=== PATIENT | female | born 1995 | race Caucasian/White ===

== ENCOUNTER → 2017-01-25 | Outpatient (CLI) | payer OTHER | LOC: HPND 13:36 | PROVIDERS: ATTEND Obstetrics & Gynecology | DX: O48.0 Post-term pregnancy (principal); Z3A.40 40 weeks gestation of pregnancy | CPT/HCPCS: 76816; 76818 ==

== ENCOUNTER 2017-04-28 01:54 | Emergency (ER) | payer OTHER ==
[~2017-04-28] VITALS: Ht 162.6 cm; Wt 115.0 kg
[2017-04-28 01:56] VITALS: BP 130/79; PULSE 103; RESP 16; TEMP 98.8; O2SAT 100
[2017-04-28] MEDS ORDERED: CEFU1TAB20 PO (02:24)
[2017-04-28] MEDS ORDERED: LIDOCAINE HCL 1% 50 ML VIAL XX ONE (03:15)
[2017-04-28] MEDS ORDERED: KETOROLAC TROMETHAMINE 60 MG/2 ML (IM) VIAL IM ONE (03:15)
[2017-04-28] MEDS ORDERED: cefTRIAXone 250 MG VIAL IM ONE (03:15)
[2017-04-28] MEDS ORDERED: DOXY100C PO (03:18)
[2017-04-28] MEDS ORDERED: TRAM50 PO (03:18)
[2017-04-28] MEDS ORDERED: IBUP1TAB7 PO (03:18)
[2017-04-28] MEDS ORDERED: METR-1 PO (03:18)
--- NOTE | 2017-04-28 03:18 | PD ---
HPI . Pelvic pain Chief Complaint: Chest Pain Time Seen by Provider: 02:08 Travel History International Travel<30 days: No Contact w/Intl Traveler<30days: No Traveled to known affect area: No History of Present Illness HPI This patient presents with suprapubic pain that started about a week ago. She describes it as cramping. It is getting progressively worse. Was seen at an urgent care facility earlier in the week and diagnosed with urinary tract infection. She was placed on cefuroxime. She states that the cefuroxime has caused her to have heartburn. She denies any vaginal discharge or dyspareunia. PFS Past Medical History Immunizations Current: Yes Tetanus Vaccination: Unknown Influenza Vaccination: No ?: Unknown Social History Alcohol Use: No Tobacco Use: No Substance Use: No Allergies-Medications (Allergen,Severity, Reaction): Coded Allergies: No Known Allergies (Unverified , 04/28/17) Reported Meds & Prescriptions Reported Meds & Active Scripts Active Reported Cefuroxime (Cefuroxime Axetil) 500 Mg Tab 500 Mg PO BID Review of Systems Except as stated in HPI: all other systems reviewed are Neg General / Constitutional: No: Fever, Chills Gastrointestinal: Positive: Other (reflux), No: Nausea, Vomiting Genitourinary: Positive: Pelvic Pain, No: Urgency, Frequency, Dysuria, Discharge, Dysmenorrhea, Vaginal Bleeding Physical Exam Narrative GENERAL: Awake and alert and in no acute distress. SKIN: Warm and dry. HEAD: Normocephalic/atraumatic. EYES: Pupils are equal. Extraocular movements are intact. NECK: Normal range of motion. CARDIOVASCULAR: Regular rate and rhythm. RESPIRATORY: Nonlabored respirations. ABDOMEN: Soft and nontender. : There is a white discharge in the vaginal vault. Her cervix is friable. The os is closed. There is no cervical motion tenderness but she does have bilateral adnexal tenderness. MUSCULOSKELETAL: Atraumatic. NEUROLOGICAL: Nonfocal. PSYCHIATRIC: Appropriate mood and affect. Data Data Last Documented VS Vital Signs Date Time Temp Pulse Resp B/P (MAP) Pulse Ox O2 Delivery O2 Flow Rate FiO2 04/28/17 01:56 98.8 103 16 130/79 (96) 100 Room Air Orders Orders Gc And Chlamydia Pcr (04/28/17 02:08) Wet Prep Profile (04/28/17 02:08) Urinalysis - C+S If Indicated (04/28/17 02:08) Ed Urine Pregnancytest Poc (04/28/17 02:08) Ceftriaxone Inj (Rocephin Inj) (04/28/17 03:15) Lidocaine 1% Inj (50 Ml) (Xylocaine 1% I (04/28/17 03:15) Ketorolac Inj (Toradol Inj) (04/28/17 03:15) MDM Medical Decision Making Medical Screen Exam Complete: Yes Emergency Medical Condition: Yes Differential Diagnosis Differential diagnosis of pelvic pain includes but is not limited to UTI, PID, ectopic , spontaneous AB, constipation, viral illness Narrative Course This patient presents with a one-week history of pelvic pain. She has PID on physical exam. test is negative. She will be treated here with Rocephin and then will be discharged on doxycycline, Flagyl, ibuprofen and Ultram. Diagnosis Primary Impression: Pelvic inflammatory disease Patient Instructions: General Instructions, Pelvic Inflammatory Disease (DC) Med/Other Pt SpecificInfo: Prescription(s) given Scripts Tramadol (Ultram) 50 Mg Tab 50 MG PO Q4H Y for PAIN, #12 TAB 0 Refills Prov: Ava Peters MD 04/28/17 Ibuprofen (Ibuprofen) 800 Mg Tab 800 MG PO Q8H Y for Pain/Inflammation, #60 TAB 0 Refills Prov: Ava Peters MD 04/28/17 Metronidazole (Flagyl) 500 Mg Tab 500 MG PO BID for Infection for 7 Days, #14 TAB 0 Refills Prov: Ava Peters MD 04/28/17 Doxycycline Hyclate (Doxycycline Hyclate) 100 Mg Cap 100 MG PO BID for Infection, #20 CAP 0 Refills Prov: Ava Peters MD 04/28/17 Disposition: 01 DISCHARGE HOME Condition: Stable Ava Peters MD Apr 28, 2017 03:18
[2017-04-28 04:06] LABS: BACTERIA, URINE RARE /hpf; BLOOD, URINE NEG (NEG); COMMENT (UR) CULT NOT INDICATED; CULTURE IF INDICATED CULT NOT INDICATED; GLUCOSE,URINE NEG (NEG); KETONE, URINE NEG (NEG); MUCUS URINE FEW /lpf (OCC); NITRITE,URINE NEG (NEG); PH, URINE 5.5 (5.0-8.5); SQUAMOUS EPITHELIAL CELL URINE 6 /hpf (0-5); URINE COLOR YELLOW (YELLW/STRAW)
[2017-04-28 06:07] LABS: CHLAMYDIA PCR NOT DETECTED (NOT DETECT); NEISSERIA PCR NOT DETECTED (NOT DETECT)
== END 2017-04-28 03:42 | disposition home or self-care (01) ==
LOC: NEPC 01:54
DX: N73.9 Female pelvic inflammatory disease, unspecified (principal)
CPT/HCPCS: 81001; 84703; 87210; 87491; 87591; 96372; 99284; J0696; J1885

== ENCOUNTER 2017-06-27 11:32 | Emergency (ER) | payer OTHER ==
[~2017-06-27] VITALS: Ht 162.6 cm; Wt 109.0 kg
[~2017-06-27 11:32] MED LIST: LACTCAP8 PO; OMEP20TA93 PO
[2017-06-27 11:33] VITALS: BP 122/75; PULSE 86; RESP 16; TEMP 99.3; O2SAT 100
[2017-06-27] MEDS ORDERED: IOHEXOL 350 MG/ML 10 ML VIAL (for RAD DIAG) IVCONTRAST ONE (11:33)
[2017-06-27 12:49] LABS: BACTERIA, URINE RARE /hpf; BILIRUBIN, URINE NEG (NEG); BLOOD, URINE NEG (NEG); GLUCOSE,URINE NEG (NEG); KETONE, URINE NEG (NEG); NITRITE,URINE NEG (NEG); PH, URINE 5.5 (5.0-8.5); SQUAMOUS EPITHELIAL CELL URINE 1 /hpf (0-5); URINE COLOR LIGHT-YELLOW (YELLW/STRAW); URINE LEUKOCYTE ESTERASE MOD (NEG)
[2017-06-27 12:49] LABS: AUTOMATED NEUTROPHIL # 4.7 TH/MM3 (1.8-7.7); BASOPHIL # 0.1 TH/MM3 (0-0.2); BASOPHIL % 1.1 % (0.0-2.0); EOSINOPHIL # 0.1 TH/MM3 (0-0.4); EOSINOPHIL % 1.4 % (0.0-4.0); HEMATOCRIT 37.4 % (35.0-46.0); HEMOGLOBIN 12.5 GM/DL (11.6-15.3); LYMPH % 20.3 % (9.0-44.0); LYMPHOCYTE # 1.3 TH/MM3 (1.0-4.8); MEAN CELL VOLUME 79.1 FL (80.0-100.0); MEAN CORPUSCULAR HEMOGLOBIN 26.5 PG (27.0-34.0); MEAN CORPUSCULAR HGB CONC 33.5 % (32.0-36.0); MEAN PLATELET VOLUME 7.4 FL (7.0-11.0); MONO % 7.1 % (0.0-8.0); MONOCYTE # 0.5 TH/MM3 (0-0.9); NEUT % 70.1 % (16.0-70.0); PLATELET COUNT 400 TH/MM3 (150-450); RED BLOOD COUNT 4.72 MIL/MM3 (4.00-5.30); RED CELL DISTRIBUTION WIDTH 15.9 % (11.6-17.2); WHITE BLOOD COUNT 6.6 TH/MM3 (4.0-11.0)
[2017-06-27 13:00] VITALS: BP 123/72; PULSE 81; RESP 17; TEMP 98.2; O2SAT 99
[2017-06-27 13:06] LABS: ALBUMIN 4.1 GM/DL (3.4-5.0); AST (GOT) 13 U/L (15-37); BICARBONATE 26.8 MEQ/L (21.0-32.0); BLOOD UREA NITROGEN 8 MG/DL (7-18); CALCIUM 9.1 MG/DL (8.5-10.1); CHLORIDE 106 MEQ/L (98-107); GLOMERULAR FILTRATION RATE 69 ML/MIN (>89); GLUCOSE,RANDOM 88 MG/DL (74-106); SODIUM (NA) 138 MEQ/L (136-145)
[2017-06-27 13:08] LABS: ALT (GPT) 11 U/L (10-53)
[2017-06-27 13:17] LABS: ALKALINE PHOSPHATASE 63 U/L (45-117); TOTAL BILIRUBIN ADULT 1.2 MG/DL (0.2-1.0); TOTAL PROTEIN 7.6 GM/DL (6.4-8.2)
[2017-06-27] MEDS ORDERED: SODIUM CHLOR 0.9% 1000 ML INJ 1,000 ML IV SCH (13:22)
--- NOTE | 2017-06-27 13:22 | PD ---
HPI Chief Complaint: Abdominal Pain Time Seen by Provider: 13:01 Travel History International Travel<30 days: No Contact w/Intl Traveler<30days: No Traveled to known affect area: No History of Present Illness HPI 21-year-old female presents to the emergency department with concern of breaking out in hives after drinking oral contrast for CT scan that she was supposed to have this morning. She does not have hives at this time. She said they broke out on her face, chest, and upper extremities and have subsided spontaneously. She is complaining of abdominal pain 2 months. She has seen her regular doctor, Dr. Morgan, and GI last month and had endoscopy done and was told there was some inflammation, but nothing significant. She was told to come to the ER for evaluation of the hives. She also is concerned that she has something wrong with her thyroid. Her primary care provider told her she could possibly have an autoimmune disorder and her TSH was anuzvow0s, but she was not started on any medications. She reports feeling tired and lethargic. Says she' s been having low-grade fevers on and off and last had one 4 nights ago 99.0- 100.0. PFSH Past Medical History Medical History: Denies Significant Hx Immunizations Current: Yes Tetanus Vaccination: Unknown ?: Not LMP: 06/25/16 Past Surgical History Oral Surgery: Yes (WISDOM TEETH) Tonsillectomy: Yes Other Surgery: Yes (ENDOSCOPY) Social History Alcohol Use: No Tobacco Use: No Substance Use: No Allergies-Medications (Allergen,Severity, Reaction): Coded Allergies: doxycycline (Verified Allergy, Severe, SOB Dizzy, 05/18/17) barium sulfate (Verified Allergy, Unknown, 06/27/17) Reported Meds & Prescriptions Reported Meds & Active Scripts Active Synthroid (Levothyroxine Sodium) 175 Mcg Tab 175 Mcg PO DAILY Reported Omeprazole 20 Mg Tab 20 Mg PO DAILY Probiotic (Lactobacillus Acidophilus) 10 Billion Cell Cap 1 Cap PO DAILY Review of Systems Except as stated in HPI: all other systems reviewed are Neg Physical Exam Narrative GENERAL: Well-nourished, well-developed female patient, in no acute distress; afebrile; nontoxic appearing SKIN: Warm and dry. No rash noted. HEAD: Atraumatic. Normocephalic. EYES: Pupils equal and round. No scleral icterus. No injection or drainage. ENT: Mucosa pink and moist. Airway patent. NECK: Trachea midline. CARDIOVASCULAR: Regular rate and rhythm. No murmur appreciated. RESPIRATORY: No accessory muscle use. Clear to auscultation. Breath sounds equal bilaterally. GASTROINTESTINAL: Abdomen soft, tenderness on palpation to epigastric region, nondistended. Hepatic and splenic margins not palpable. Negative Santa's. Bowel sounds are active 4 quadrants. Nonrigid. No rebound tenderness. No guarding. BACK: No CVA tenderness. MUSCULOSKELETAL: No obvious deformities. No clubbing. No cyanosis. No edema. NEUROLOGICAL: Awake and alert. Oriented 3. No obvious cranial nerve deficits. Motor grossly within normal limits. Normal speech. PSYCHIATRIC: Appropriate mood and affect; insight and judgment normal. Data Data Last Documented VS Vital Signs Date Time Temp Pulse Resp B/P (MAP) Pulse Ox O2 Delivery O2 Flow Rate FiO2 06/27/17 16:58 66 18 130/86 (101) 99 06/27/17 13:00 98.2 Room Air Orders Orders Complete Blood Count With Diff (06/27/17 11:43) Comprehensive Metabolic Panel (06/27/17 11:43) Lipase (06/27/17 11:43) Urinalysis - C+S If Indicated (06/27/17 11:43) Ed Urine Pregnancytest Poc (06/27/17 11:43) Thyroid Stimulating Hormone (06/27/17 11:43) Ct Abd/Pel W Iv Contrast(Rout) (06/27/17 13:22) Diphenhydramine Inj (Benadryl Inj) (06/27/17 13:30) Ondansetron Inj (Zofran Inj) (06/27/17 13:30) Sodium Chlor 0.9% 1000 Ml Inj (Ns 1000 M (06/27/17 13:22) Sodium Chloride 0.9% Flush (Ns Flush) (06/27/17 13:30) Ketorolac Inj (Toradol Inj) (06/27/17 13:30) Free T3 (06/27/17 13:22) Free Thyroxine (T4) (06/27/17 13:22) Iohexol 350 Inj (Omnipaque 350 Inj) (06/27/17 11:33) Levothyroxine (Synthroid) (06/27/17 15:30) Levothyroxine (Synthroid) (06/27/17 16:00) Levothyroxine (Synthroid) (06/27/17 16:00) Ed Discharge Order (06/27/17 16:42) Labs Laboratory Tests Test 06/27/17 12:28 06/27/17 12:37 White Blood Count 6.6 TH/MM3 Red Blood Count 4.72 MIL/MM3 Hemoglobin 12.5 GM/DL Hematocrit 37.4 % Mean Corpuscular Volume 79.1 FL Mean Corpuscular Hemoglobin 26.5 PG Mean Corpuscular Hemoglobin Concent 33.5 % Red Cell Distribution Width 15.9 % Platelet Count 400 TH/MM3 Mean Platelet Volume 7.4 FL Neutrophils (%) (Auto) 70.1 % Lymphocytes (%) (Auto) 20.3 % Monocytes (%) (Auto) 7.1 % Eosinophils (%) (Auto) 1.4 % Basophils (%) (Auto) 1.1 % Neutrophils # (Auto) 4.7 TH/MM3 Lymphocytes # (Auto) 1.3 TH/MM3 Monocytes # (Auto) 0.5 TH/MM3 Eosinophils # (Auto) 0.1 TH/MM3 Basophils # (Auto) 0.1 TH/MM3 CBC Comment DIFF FINAL Differential Comment Blood Urea Nitrogen 8 MG/DL Creatinine 1.00 MG/DL Random Glucose 88 MG/DL Total Protein 7.6 GM/DL Albumin 4.1 GM/DL Calcium Level 9.1 MG/DL Alkaline Phosphatase 63 U/L Aspartate Amino Transf (AST/SGOT) 13 U/L Alanine Aminotransferase (ALT/SGPT) 11 U/L Total Bilirubin 1.2 MG/DL Sodium Level 138 MEQ/L Potassium Level 4.0 MEQ/L Chloride Level 106 MEQ/L Carbon Dioxide Level 26.8 MEQ/L Anion Gap 5 MEQ/L Estimat Glomerular Filtration Rate 69 ML/MIN Lipase 132 U/L Free Thyroxine 0.47 NG/DL Free Triiodothyronine (T3) pg/dL 1.92 PG/ML Thyroid Stimulating Hormone 3rd Gen 61.200 uIU/ML Urine Color LIGHT-YELLOW Urine Turbidity CLEAR Urine pH 5.5 Urine Specific Crook 1.005 Urine Protein NEG mg/dL Urine Glucose (UA) NEG mg/dL Urine Ketones NEG mg/dL Urine Occult Blood NEG Urine Nitrite NEG Urine Bilirubin NEG Urine Urobilinogen LESS THAN 2.0 MG/DL Urine Leukocyte Esterase MOD Urine RBC 1 /hpf Urine WBC 1 /hpf Urine Squamous Epithelial Cells 1 /hpf Urine Bacteria RARE /hpf Microscopic Urinalysis Comment CULT NOT INDICATED MDM Medical Decision Making Medical Screen Exam Complete: Yes Emergency Medical Condition: Yes Medical Record Reviewed: Yes Differential Diagnosis Nonspecific abdominal pain, pyelonephritis, UTI, gastritis, cholecystitis, encopresis, hypothyroidism Narrative Course 1400: CBC, CMP remarkable. TSH 61.200. Urinalysis unremarkable. Free T4 and T3 ordered. 1503: Free T3 1.92; Free T4 0.47. Finding consistent with primary hypothyroidism. Discussed with Dr. Berg and patient will be started on Synthroid 175mcg daily. 1640: CT abdomen/pelvis concludes: Negative for an acute process; I do not see etiology for abdominal pain. Patient provided a copy of the CT report. Discussed hypothyroidism, start of Synthroid and repeat thyroid levels in 6-8 weeks. Patient verbalized understanding and agreement. Synthroid prescribed for home. Instructed patient to follow up with primary care provider, clinical appeals rn, and gastroenterology. Instructed patient to follow up with primary care provider. Patient verbalizes understanding and agreement with treatment plan. Patient is medically cleared and stable for discharge. Discussed reasons to return to the emergency department. Patient agrees with treatment plan. The patients vital signs are stable and the patient is stable for outpatient follow-up and treatment. Patient discharged home, stable and in no acute distress. Diagnosis Primary Impression: Abdominal pain Qualified Codes: R10.9 - Unspecified abdominal pain Additional Impression: Primary hypothyroidism Referrals: [employer] In[employer] Primary Care Physician Patient Instructions: Abdominal Pain (ED), General Instructions, Hypothyroidism (ED) Additional Instructions: Synthroid as prescribed; take on an empty stomach 30-60 minutes before eating Follow-up with primary care provider or clinical appeals rn for repeat thyroid levels in 6-8 weeks Please provide a copy of the CT abdomen report for the patient Follow-up with gastroenterology Follow-up with primary care provider Follow-up with endocrinology Return to the emergency department immediately with worsening of symptoms Med/Other Pt SpecificInfo: Prescription(s) given Scripts Levothyroxine (Synthroid) 175 Mcg Tab 175 MCG PO DAILY for Thyroid, #30 TAB 0 Refills Prov: Bonny Herrmann 06/27/17 Disposition: DISCHARGE HOME Condition: Stable Bonny Herrmann Jun 27, 2017 13:22
[2017-06-27] MEDS ORDERED: ONDANSETRON HCL 4 MG/2 ML VIAL IVP ONE (13:30)
[2017-06-27] MEDS ORDERED: diphenhydrAMINE HCL 50 MG/ML VIAL IV PUSH ONE (13:30)
[2017-06-27] MEDS ORDERED: SODIUM CHLORIDE 0.9% FLUSH 10 ML FLUSH IV FLUSH PRN (13:30)
[2017-06-27] MEDS ORDERED: KETOROLAC TROMETHAMINE 30 MG/ML (IVP) VIAL IVP ONE (13:30)
[2017-06-27 14:24] LABS: FREE T3 1.92 PG/ML (2.18-3.98); FREE T4 0.47 NG/DL (0.76-1.46)
[2017-06-27] MEDS ORDERED: SYNT175T PO (15:27)
[2017-06-27] MEDS ORDERED: LEVOTHYROXINE SODIUM 150 MCG TAB PO ONE ×2 (15:30→16:00)
[2017-06-27] MEDS ORDERED: LEVOTHYROXINE SODIUM 25 MCG TAB PO ONE (16:00)
--- NOTE | 2017-06-27 16:27 | RADRPT ---
EXAM DATE/TIME: 06/27/2017 15:03 [facility] COMPARISON: No previous studies available for comparison. INDICATIONS : Bilateral upper and lower abdomen pain for two months. IV CONTRAST: 87 cc Omnipaque 350 (iohexol) IV ORAL CONTRAST: No oral contrast ingested. RADIATION DOSE: 16.49 CTDIvol (mGy) MEDICAL HISTORY : None SURGICAL HISTORY : Tonsillectomy. ENCOUNTER: Initial ACUITY: 1 month PAIN SCALE: 7/10 LOCATION: Bilateral upper quadrant TECHNIQUE: Volumetric scanning of the abdomen and pelvis was performed. Using automated exposure control and ad justment of the mA and/or kV according to patient size, radiation dose was kept as low as reasonably achievable to obtain optimal diagnostic quality images. DICOM format image data is available electro nically for review and comparison. FINDINGS: LOWER LUNGS: The visualized lower lungs are clear. LIVER: Homogeneous density without lesion. There is no dilation of the biliary tree. No calcified gallston es. SPLEEN: Normal size without lesion. PANCREAS: Within normal limits. KIDNEYS: Normal in size and shape. There is no mass, stone or hydronephrosis. ADRENAL GLANDS: Within normal limits. VASCULAR: There is no aortic aneurysm. BOWEL/MESENTERY: The stomach, small bowel, and colon demonstrate no acute abnormality. There is no free intraperitone al air or fluid. ABDOMINAL WALL: Within normal limits. RETROPERITONEUM: There is no lymphadenopathy. BLADDER: No wall thickening or mass. REPRODUCTIVE: Within normal limits. INGUINAL: There is no lymphadenopathy or hernia. MUSCULOSKELETAL: Within normal limits for patient age. CONCLUSION: Negative for an acute process. I do not see etiology for abdominal pain.. Andrey Holden MD FACR on June 27, 2017 at 16:23 Board Certified Radiologist. This report was verified electronically.
[2017-06-27 16:58] VITALS: BP 130/86
== END 2017-06-27 16:58 | disposition home or self-care (01) ==
LOC: NEPD 11:32
DX: R10.9 Unspecified abdominal pain (principal); E03.9 Hypothyroidism, unspecified; Z88.8 Allergy status to other drugs, medicaments and biological substances; Z79.899 Other long term (current) drug therapy
CPT/HCPCS: 74177; 80053; 81001; 83690; 84439; 84443; 84481; 84703; 85025; 96361; 96374; 96375; 99284; J1200; J1885; J2405; J7030; Q9967